=== PATIENT | female | born 1955 | race Caucasian/White ===

== ENCOUNTER 2020-01-08 13:17 | Inpatient (IN) ==
[2020-01-08] MEDS ORDERED: Naloxone 0.4 MG/ML INJ IVP PRN (15:06)
[2020-01-08] MEDS ORDERED: D5% in Water 1,000 ML IVC PRN (15:37)
[2020-01-08] MEDS ORDERED: Dextrose Gel 15 GM/37.5 ML TUBE PO PRN ×2 (15:37)
[2020-01-08] MEDS ORDERED: *HR* Dextrose 50 % in Water (Syg) 50 ML SYRINGE IVP PRN (15:37)
[2020-01-08] MEDS: Insulin LISPRO 300 UNITS/3 ML VIAL SQ SCH (16:21)
[2020-01-08] MEDS ORDERED: Ipratropium/Albuterol Neb 3 ML IH PRN (16:25)
[2020-01-08] MEDS: *HR* Heparin 5,000 UNIT/ML VIAL SQ SCH (20:20)
[2020-01-08] MEDS ORDERED: Melatonin 3 MG TABLET PO PRN (20:32)
[2020-01-08] MEDS: QUEtiapine Fumarate 100 MG TABLET PO SCH (21:58)
[2020-01-08] MEDS: MethylPREDNISolone 40 MG/ML VIAL IVP SCH (23:27)
[2020-01-09 06:51] LABS: Basophils % 0.1 %; Hematocrit 34.6 % (35.3-44.9); Immature Granulocytes % 0.7 % (0-4); Lymphocytes # 1.1 K/mcL (0.6-4.6); Lymphocytes % 6.9 %; Mean Corpuscular HGB Conc 31.8 g/dL (31.6-35.5); Mean Platelet Volume 10.9 fL (9.4-12.4); Monocytes # 0.3 K/mcL (0.0-1.3); Neutrophils # 14.3 K/mcL (1.6-8.9); Platelet Count 216 K/mcL (140-400); Red Blood Count 3.93 M/mcL (3.82-4.97); Red Cell Distribution Width 14.2 % (11.5-14.5); Segmented Neutrophils % 90.3 %; White Blood Count 15.8 K/mcL (4.3-11.1)
[2020-01-09 07:12] LABS: BUN/Creatinine Ratio 17 (6-26); Blood Urea Nitrogen 13 mg/dL (8-23); Calcium 8.5 mg/dL (8.6-10.3); Carbon Dioxide 27 mEq/L (23-29); Chloride 105 mEq/L (98-107); Glucose 179 mg/dL (70-105); Osmolality,Calculated 291 (280-300); Potassium 3.4 mEq/L (3.5-5.1); Sodium 138 mEq/L (136-145); eGFR For African Americans > 60 (> 60); eGFR For Non-African Americans > 60 (> 60)
[2020-01-09] MEDS ORDERED: Nitroglycerin 0.4 MG TAB.SUBL SL PRN (07:19)
[2020-01-09] MEDS ORDERED: hydrOXYzine pamoate 25 MG CAPSULE PO PRN (07:19)
[2020-01-09] MEDS: *HR* Heparin 5,000 UNIT/ML VIAL SQ SCH ×3 (07:32→21:30)
[2020-01-09] MEDS: Insulin LISPRO 300 UNITS/3 ML VIAL SQ SCH ×3 (07:55→16:14)
[2020-01-09] MEDS: lisinopriL 10 MG TABLET PO SCH (07:56)
[2020-01-09] MEDS: Aspirin Enteric Coated 81 MG Tablet PO SCH (07:57)
[2020-01-09] MEDS: Cholecalciferol (D-3) 1,000 UNIT (25MCG) TABLET PO SCH (07:57)
[2020-01-09] MEDS: hydroCHLOROthiazide 25 MG TABLET PO SCH (07:57)
[2020-01-09] MEDS: levoFLOXacin 750 MG/150 ML 750 MG/150 ML BAG IVPB SCH (07:57)
[2020-01-09] MEDS: QUEtiapine Fumarate 100 MG TABLET PO SCH ×2 (07:57→21:30)
[2020-01-09] MEDS: MethylPREDNISolone 40 MG/ML VIAL IVP SCH ×3 (07:57→23:29)
[2020-01-09] MEDS: Gabapentin 300 MG CAPSULE PO SCH ×3 (07:57→21:30)
[2020-01-09] MEDS ORDERED: ECHINACEA 380 MG PO SCH (09:00)
[2020-01-09] MEDS ORDERED: LYSINE HCL 1000 MG PO SCH (09:00)
[2020-01-09] MEDS: (Potassium 99 MG) PO SCH (16:37)
[2020-01-10] MEDS: *HR* Heparin 5,000 UNIT/ML VIAL SQ SCH (05:12)
[2020-01-10 06:59] VITALS: BP 156/71
[2020-01-10] MEDS: Aspirin Enteric Coated 81 MG Tablet PO SCH (07:37)
[2020-01-10] MEDS: MethylPREDNISolone 40 MG/ML VIAL IVP SCH (07:37)
[2020-01-10] MEDS: Insulin LISPRO 300 UNITS/3 ML VIAL SQ SCH (07:37)
[2020-01-10] MEDS: hydroCHLOROthiazide 25 MG TABLET PO SCH (07:38)
[2020-01-10] MEDS: Gabapentin 300 MG CAPSULE PO SCH (07:38)
[2020-01-10] MEDS: QUEtiapine Fumarate 100 MG TABLET PO SCH (07:38)
[2020-01-10] MEDS: lisinopriL 10 MG TABLET PO SCH (07:38)
[2020-01-10] MEDS: Cholecalciferol (D-3) 1,000 UNIT (25MCG) TABLET PO SCH (07:38)
[2020-01-10] MEDS: levoFLOXacin 750 MG/150 ML 750 MG/150 ML BAG IVPB SCH (07:39)
[2020-01-10] MEDS: (Potassium 99 MG) PO SCH (07:39)
[2020-01-10 07:55] LABS: Basophils % 0.1 %; Hematocrit 35.5 % (35.3-44.9); Hemoglobin 11.4 g/dL (11.5-15.4); Immature Granulocytes % 0.7 % (0-4); Lymphocytes # 1.1 K/mcL (0.6-4.6); Lymphocytes % 7.8 %; Mean Corpuscular HGB Conc 32.1 g/dL (31.6-35.5); Mean Corpuscular Hemoglobin 28.1 pg (28.0-33.3); Mean Corpuscular Volume 87.7 fL (83.0-100.0); Mean Platelet Volume 11.4 fL (9.4-12.4); Monocytes # 0.4 K/mcL (0.0-1.3); Monocytes % 2.7 %; Neutrophils # 12.3 K/mcL (1.6-8.9); Platelet Count 229 K/mcL (140-400); Red Blood Count 4.05 M/mcL (3.82-4.97); Red Cell Distribution Width 14.5 % (11.5-14.5); Segmented Neutrophils % 88.7 %; White Blood Count 13.9 K/mcL (4.3-11.1)
[2020-01-10 08:07] LABS: BUN/Creatinine Ratio 20 (6-26); Blood Urea Nitrogen 17 mg/dL (8-23); Calcium 8.9 mg/dL (8.6-10.3); Carbon Dioxide 26 mEq/L (23-29); Chloride 104 mEq/L (98-107); Glucose 191 mg/dL (70-105); Osmolality,Calculated 293 (280-300); Potassium 3.7 mEq/L (3.5-5.1); Sodium 138 mEq/L (136-145); eGFR For African Americans > 60 (> 60); eGFR For Non-African Americans > 60 (> 60)
== END 2020-01-10 11:16 | disposition home or self-care (01) | DRG 871 ==
LOC: 2ANU
PROVIDERS: ADMIT Internal Medicine; ATTEND Internal Medicine